=== PATIENT | female | born 1960 | race Caucasian/White ===

== ENCOUNTER → 2016-10-26 | Outpatient (CLI) | payer MEDICARE ==
[~2016-10-26] MED LIST: ACLI400A IH; ATOR10TA66 PO; BUDE6HFA IH; CEFD300C3 PO; FLUT1AER IH; HYDR118S10 PO; LVT.1T PO; MTF500T PO; RT-ALBUINH IH
--- NOTE | 2016-10-26 16:03 | Diagnostic Imaging Report ---
INDICATION: Abdominal pain, adnexal mass. COMPARISON: Correlation is limited to a CT fusion PET performed on 09/25/2015 at an outside facility. FINDINGS: A fibroid mass measuring 4.2 x 3.8 x 3.6 cm deviates the endometrial stripe to the right. The endometrium itself is 5 mm. No adnexal mass is identified. The ovaries are nonvisualized. No pelvic ascites. IMPRESSION: There is a partly exophytic and likely partly submucosal 3.8 cm fibroid mass deviating the otherwise unremarkable endometrium. There is nonidentification of the ovaries but no adnexal mass. No pelvic ascites. Dictated by: Dictated on workstation # [id number]
== END ==
LOC: RAD 14:13
PROVIDERS: ATTEND Nurse Practitioner
DX: R19.09 Other intra-abdominal and pelvic swelling, mass and lump (principal)
CPT/HCPCS: 76830; 76856